=== PATIENT | female | born 1940 | race Caucasian/White ===

== ENCOUNTER 2017-07-23 19:37 | Emergency (ER) | payer MEDICARE, OTHER ==
[~2017-07-23] VITALS: Ht 167.6 cm; Wt 65.8 kg
[~2017-07-23 19:37] MED LIST: ALIGN; AZIT500T47 PO; CYCL1DRO6 OP; DILT-102 PO; HYDR473S4 PO; LEVO300T5 PO; PRE20 PO; RIV10 PO; TOLT2TAB5 PO; URSO250T11 PO
--- NOTE | 2017-07-23 19:45 | ER Report ---
History and Physical Time Seen By MD: 19:45 Hx. of Stated Complaint: RAPID HEART RATE, SOB, DIZZINESS. HPI/ROS CHIEF COMPLAINT: Rapid heart rate HISTORY OF PRESENT ILLNESS: This is a 76-year-old female who presents to the emergency department for a rapid heart rate. Patient states that about 3 hours ago she developed a rapid heart rate which she states is A. fib. Also states that about 4 years ago she had a complete heart block had a pacemaker placed has had intermittent episodes of A. fib then in March she had an ablation. Following the ablation she was instructed to stop her metoprolol and her Cardizem for breakthrough episodes of A. fib, as she is on Multaq. This episode of A. Fib began 3 hours prior to arrival, she has also had some mild confusion and feels like her chest is pounding however she denies chest pain, is having some mild shortness of breath. Patient denies diaphoresis, aches, chills, nausea , vomiting, diarrhea. REVIEW OF SYSTEMS: Constitutional: No fever, no chills. Eyes: No discharge. ENT: No sore throat. Cardiovascular: As above. Respiratory: As above. Gastrointestinal: No abdominal pain, no vomiting. Genitourinary: No hematuria. Musculoskeletal: No back pain. Skin: No rashes. Neurological: As above. Allergies: Coded Allergies: Penicillins (Verified Allergy, Mild, SYNCOPE, 07/23/17) iodine (Verified Allergy, Mild, INTERNAL IODINE, CHANGE IN VS, 07/23/17) Uncoded Allergies: ORANGE JUICE (Allergy, Severe, THROAT CLOSES, 12/21/11) SOME DIARY PRODUCTS (Allergy, Severe, THROAT CLOSES, 05/22/07) MOLD (Allergy, Unknown, 11/19/14) Home Meds Active Scripts Metoprolol Tartrate (METOPROLOL TARTRATE) 25 Mg Tablet, 1 TAB PO BID, #12 TAB Prov:PAUL GARCIA INDUSTRIAL GAS FITTER-BC 07/23/17 Reported Medications Vitamin B Complex (VITAMIN B COMPLEX) 1 Each Capsule, 1 EACH PO, CAPSULE 07/23/17 Cholecalciferol (Vitamin D3) (Vitamin D-3) 2,000 Unit Tablet 07/23/17 Multivit,Calc,Mins/Iron/Folic (Therapeutic-M Tablet) 9 Mg Iron-400 Mcg Tablet 07/23/17 Dronedarone Hcl (MULTAQ) 400 Mg Tablet, 400 MG PO 07/23/17 Rivaroxaban (XARELTO 10 MG TAB (OR EQUIV)) 10 Mg Tablet, 10 MG PO QDAY 03/08/15 Ursodiol (Jordy) 250 Mg Tablet, 250 MG PO BID, #1 12/15/09 Levothyroxine Sodium (Levothryoxine Sodium) 300 Mcg Tablet, 300 MCG PO QDAY, #1 12/15/09 Discontinued Reported Medications Diltiazem Hcl (CARTIA XT) 120 Mg Cap.er.24h, PO DAILY 03/08/15 Cyclosporine (Restasis) 32 Ea Drope[place], 1 EA OP BID 12/15/09 Past Medical/Surgical History Patient has a past medical and surgical history of A. fib, pacemaker, third- degree AV block. His right is, primary biliary cirrhosis, Sjogren's, hysterectomy, 2 knee scopes. Reviewed Nurses Notes: Yes Hx Smoking: No Smoking Status: Never Smoker Constitutional Vital Sign - Last 24 Hours 07/23/17 07/23/17 07/23/17 07/23/17 19:43 19:45 19:52 20:00 Pulse 144 Resp 10 B/P (MAP) 111/87 (95) 108/81 (90) Pulse Ox 92 O2 Delivery Room Air 07/23/17 07/23/17 07/23/17 07/23/17 20:07 20:15 20:22 20:30 Pulse 124 100 Resp 13 10 B/P (MAP) 109/81 (90) 115/70 (85) Pulse Ox 93 89 07/23/17 07/23/17 07/23/17 07/23/17 20:37 20:52 21:00 21:07 Pulse 92 98 96 Resp 13 14 15 B/P (MAP) 114/72 (86) Pulse Ox 94 96 96 07/23/17 07/23/17 07/23/17 07/23/17 21:15 21:22 21:30 21:35 Pulse 84 89 Resp 14 B/P (MAP) 108/64 (79) 103/67 (79) Pulse Ox 92 07/23/17 07/23/17 07/23/17 07/23/17 21:40 21:45 21:55 22:00 Pulse 74 77 Resp 15 24 B/P (MAP) 117/68 (84) 119/70 (86) Pulse Ox 92 93 Intake and Output 07/23/17 07/23/17 07/24/17 15:00 23:00 07:00 Intake Total 500 ml Balance 500 ml Physical Exam General Appearance: The patient is alert, has no immediate need for airway protection and no signs of toxicity. Eyes: Pupils equal and round no pallor or injection. ENT, Mouth: Mucous membranes are moist. Respiratory: There are no retractions, lungs are clear to auscultation. Cardiovascular: Irregular rate and rhythm, no murmurs, clicks or rubs. Gastrointestinal: Abdomen is soft and non tender, no masses, bowel sounds normal. Neurological: Alert and oriented 4. Moving all Achilles. Following all commands. No focal neuro deficits. Skin: Warm and dry, no rashes. Musculoskeletal: Neck is supple non tender. Extremities are nontender, nonswollen and have full range of motion. DIFFERENTIAL DIAGNOSIS: After history and physical exam differential diagnosis was considered for chest pain including but not limited to myocardial ischemia, pericarditis pulmonary embolus, chest wall pain, pleural inflammation and pulmonary infectious causes, A. Fib. Medical Decision Making Data Points Result Diagram: 07/23/17 1950 07/23/17 1950 Laboratory Hematology Test 07/23/17 19:50 Red Blood Count 4.90 M/uL (4.17-5.56) Mean Corpuscular Volume 92.4 fL (80.0-96.0) Mean Corpuscular Hemoglobin 31.1 pg (26.0-33.0) Mean Corpuscular Hemoglobin Concent 33.7 g/dL (32.0-36.0) Red Cell Distribution Width 13.2 % (11.5-14.5) Mean Platelet Volume 8.1 fL (7.2-11.1) Neutrophils (%) (Auto) 61.2 % (39.4-72.5) Lymphocytes (%) (Auto) 29.1 % (17.6-49.6) Monocytes (%) (Auto) 7.2 % (4.1-12.4) Eosinophils (%) (Auto) 1.7 % (0.4-6.7) Basophils (%) (Auto) 0.8 % (0.3-1.4) Nucleated RBC Relative Count (auto) 0.1 /100WBC Neutrophils # (Auto) 3.1 K/uL (2.0-7.4) Lymphocytes # (Auto) 1.5 K/uL (1.3-3.6) Monocytes # (Auto) 0.4 K/uL (0.3-1.0) Eosinophils # (Auto) 0.1 K/uL (0.0-0.5) Basophils # (Auto) 0.0 K/uL (0.0-0.1) Nucleated RBC Absolute Count (auto) 0.00 K/uL D-Dimer Quantitative (PE/DVT) < 0.27 ug/ml (0-0.50) Sodium Level 137 mmol/L (137-145) Potassium Level 3.6 mmol/L (3.5-5.0) Chloride Level 104 mmol/L (98-107) Carbon Dioxide Level 26 mmol/L (22-31) Blood Urea Nitrogen 13 mg/dl (7-18) Creatinine 1.10 mg/dl (0.52-1.04) Glomerular Filtration Rate Calc 48.0 Random Glucose 71 mg/dl (75-110) Calcium Level 9.2 mg/dl (8.4-10.2) Total Bilirubin 0.3 mg/dl (0.2-1.3) Aspartate Amino Transf (AST/SGOT) 59 U/L (0-35) Alanine Aminotransferase (ALT/SGPT) 33 U/L (0-56) Alkaline Phosphatase 86 U/L (0-126) Troponin I < 0.012 ng/ml Total Protein 7.4 gm/dl (6.3-8.2) Albumin 4.0 g/dl (3.5-5.0) Chemistry Test 07/23/17 19:50 White Blood Count 5.0 k/uL (4.5-11.0) Red Blood Count 4.90 M/uL (4.17-5.56) Hemoglobin 15.2 g/dL (12.0-16.0) Hematocrit 45.3 % (34.0-47.0) Mean Corpuscular Volume 92.4 fL (80.0-96.0) Mean Corpuscular Hemoglobin 31.1 pg (26.0-33.0) Mean Corpuscular Hemoglobin Concent 33.7 g/dL (32.0-36.0) Red Cell Distribution Width 13.2 % (11.5-14.5) Platelet Count 254 K/uL (150-450) Mean Platelet Volume 8.1 fL (7.2-11.1) Neutrophils (%) (Auto) 61.2 % (39.4-72.5) Lymphocytes (%) (Auto) 29.1 % (17.6-49.6) Monocytes (%) (Auto) 7.2 % (4.1-12.4) Eosinophils (%) (Auto) 1.7 % (0.4-6.7) Basophils (%) (Auto) 0.8 % (0.3-1.4) Nucleated RBC Relative Count (auto) 0.1 /100WBC Neutrophils # (Auto) 3.1 K/uL (2.0-7.4) Lymphocytes # (Auto) 1.5 K/uL (1.3-3.6) Monocytes # (Auto) 0.4 K/uL (0.3-1.0) Eosinophils # (Auto) 0.1 K/uL (0.0-0.5) Basophils # (Auto) 0.0 K/uL (0.0-0.1) Nucleated RBC Absolute Count (auto) 0.00 K/uL D-Dimer Quantitative (PE/DVT) < 0.27 ug/ml (0-0.50) Glomerular Filtration Rate Calc 48.0 Calcium Level 9.2 mg/dl (8.4-10.2) Total Bilirubin 0.3 mg/dl (0.2-1.3) Aspartate Amino Transf (AST/SGOT) 59 U/L (0-35) Alanine Aminotransferase (ALT/SGPT) 33 U/L (0-56) Alkaline Phosphatase 86 U/L (0-126) Troponin I < 0.012 ng/ml Total Protein 7.4 gm/dl (6.3-8.2) Albumin 4.0 g/dl (3.5-5.0) Coagulation Test 07/23/17 19:50 D-Dimer Quantitative (PE/DVT) < 0.27 ug/ml EKG/Imaging EKG Interpretation 12 lead EKG: Rhythm: A. fib with RVR, 145 bpm. Talmage: normal QRS: normal ST segments: normal 10/02/2015 EKG showing normal sinus rhythm with first-degree AV block and occasional PVC. 03/08/2015 EKG showing A. fib at a rate of 125. 12 lead EKG: Repeat EKG following a total of 20 mg IV diltiazem. Rhythm: Sinus rhythm with a 1st degree AV block. 74 bpm. Talmage: normal QRS: normal ST segments: normal Imaging Location: [facility] Patient: Maria M Katz : 1940 Visit/Account:[id number] Date of Sevice: 07/23/2017 CHEST PA AND LAT HISTORY: Chest pain. COMPARISON: 03/08/2015 and 12/23/2008. TECHNIQUE: PA and lateral views of the chest. FINDINGS: Tubes/lines/hardware: Pacemaker generator overlies the left upper lateral chest and leads terminate at the right atrium and right ventricle. Pulmonary: There is mild left basilar scar or atelectasis, new. There are small calcified granulomas versus vessels on end at the right lung base. There is stable blunting of the posterior costophrenic angles. No pneumothorax. Cardiomediastinal: Cardiac and mediastinal silhouettes are within normal limits. Bones/soft tissues: There is mild degenerative change of the spine. The visible abdomen is normal. IMPRESSION: 1. Mild left basilar atelectasis or scarring, new from prior study. 2. Chronic blunting of the posterior costophrenic angles may be due to pleural thickening or chronic pleural effusions. Report Dictated By: Samanta Neumann at 07/23/2017 9:19 PM Report E-Signed By: Samanta Neumann at 07/23/2017 9:22 PM WSN:[id number] ED Course/Re-evaluation Clinical Indication for ER IV: Hydration, IV Access ED Course The patient was admitted to him. History and physical were obtained. Differential diagnoses were considered. An IV was started. 500 mL bolus of normal saline was given. A CBC, CMP were obtained which were unremarkable. A 2 view chest x-ray was obtained showing mild left basilar atelectasis or scarring , also showing pleural thickening or chronic pleural effusions. No acute findings. The results were reviewed with the patient and her . Patient was given a total of 20 mg IV diltiazem. I did speak with Dr. Mccord as noted below. Patient did convert from A. fib to sinus rhythm. She states she is feeling much better at this time and feels as if she can go home. I did tell patient that she must follow-up with [facility] on Tuesday or Tuesday and go ahead and take the metoprolol twice a day until she follows up with the director compliance, starting tomorrow morning. Patient was also encouraged to return to the emergency department for any other concerns or worsening symptoms. The patient and her had no other questions or concerns end was discharged home. She is also sent home with 2 metoprolol for breakthrough. 07/23/2017 19:55:14 pm [address] speak with Dr[address] Mccord the on-call director compliance [facility] since the patient said that she was not supposed to take diltiazem and was taken off of metoprolol since she had her ablation and was on multaq, he said we can go ahead and give diltiazem, metoprolol or we could cardiovert her. Elected to give diltiazem and send her home with metoprolol and have her follow up Tuesday with [facility]. Decision to Disposition Date: Jul 23, 2017 Decision to Disposition Time: 22:05 Depart Departure Latest Vital Signs Vital Signs Date Time Temp Pulse Resp B/P (MAP) Pulse Ox O2 Delivery O2 Flow Rate FiO2 07/23/17 22:00 119/70 (86) 07/23/17 21:55 77 24 93 07/23/17 19:43 Room Air Impression: Primary Impression: Atrial fibrillation with rapid ventricular response Condition: Improved Disposition: HOME OR SELF-CARE Referrals: HERNESTO LIVINGSTON DO (PCP) ADONIS MORILLO MD CARDIOLOGY New Scripts Metoprolol Tartrate (METOPROLOL TARTRATE) 25 Mg Tablet 1 TAB PO BID, #12 TAB Prov: PAUL GARCIA INDUSTRIAL GAS FITTER-BC 07/23/17 Patient Instructions: A-fib (Atrial Fibrillation) (ED) Additional Instructions: Drink plenty of water. Plenty of rest. Take the metoprolol as directed, one tablet in the morning and one tablet in the evening. You must follow-up with [facility] Tuesday or Tuesday, call 1st thing Tuesday morning to schedule the appointment. If you've failure heart rate racing again and heart pounding go ahead and try one metoprolol. If you have any other concerns or worsening symptoms please follow-up in the emergency department. MD Consult Note: PAUL Bhatti INDUSTRIAL GAS FITTER- Jul 23, 2017 19:45
[2017-07-23] MEDS ORDERED: NS(*) 0.9% 500 ML BAG 500 ML IV ONE (20:04)
[2017-07-23] MEDS ORDERED: ONDANSETRON 4 MG/2 ML VIAL IVP ONE (20:05)
[2017-07-23] MEDS ORDERED: ASPIRIN 81 MG CHEW PO ONE (20:05)
[2017-07-23] MEDS ORDERED: DRON400T4 PO (20:09)
[2017-07-23] MEDS ORDERED: MULT-73 (20:09)
[2017-07-23] MEDS ORDERED: CHOL200022 (20:09)
[2017-07-23] MEDS ORDERED: VITA1CAP46 PO (20:09)
[2017-07-23] MEDS ORDERED: DILTIAZEM 5 MG/ML 5ML IVPUSH IVP ONE (20:15)
[2017-07-23 20:21] LABS: PLATELET COUNT, AUTOMATED 254 K/uL (150-450)
--- NOTE | 2017-07-23 21:26 | RADIOLOGY IMAGING REPORT ---
FACILITY: PATIENT NAME: Maria M Katz : 1940 MR: [id number] V: [id number] EXAM DATE: ORDERING PHYSICIAN: PAUL GARCIA TECHNOLOGIST: Location: [facility] [place] Patient: Maria M Katz : 1940 Visit/Account:[id number] Date of Sevice: 07/23/2017 CHEST PA AND LAT HISTORY: Chest pain. COMPARISON: 03/08/2015 and 12/23/2008. TECHNIQUE: PA and lateral views of the chest. FINDINGS: Tubes/lines/hardware: Pacemaker generator overlies the left upper lateral chest and leads terminate a t the right atrium and right ventricle. Pulmonary: There is mild left basilar scar or atelectasis, new. There are small calcified granulomas versus vessels on end at the right lung base. There is stable blunting of the posterior costophrenic angles. No pneumothorax. Cardiomediastinal: Cardiac and mediastinal silhouettes are within normal limits. Bones/soft tissues: There is mild degenerative change of the spine. The visible abdomen is normal. IMPRESSION: 1. Mild left basilar atelectasis or scarring, new from prior study. 2. Chronic blunting of the posterior costophrenic angles may be due to pleural thickening or chronic pleural effusions. Report Dictated By: Samanta Neumann at 07/23/2017 9:19 PM Report E-Signed By: Samanta Neumann at 07/23/2017 9:22 PM WSN:[id number]
[2017-07-23] MEDS ORDERED: METO25TA93 PO (21:55)
[2017-07-23 22:00] VITALS: BP 119/70
[2017-07-23] MEDS ORDERED: METOPROLOL TART 50 MG TAB PO ONE (22:00)
--- NOTE | 2017-07-23 22:14 | EKG ---
FACILITY[place] [facility] [place]IENT NAME: HOLLIS COLLINS : [id number] MR: [id number] V: [id number] EXAM DATE: ORDERING PHYSICIAN: PAUL GARCIA TECHNOLOGIST: HECTOR Test Reason : A FIB Blood Pressure : / mmHG Vent. Rate : 145 BPM Atrial Rate : 153 BPM P-R Int : 000 ms QRS Dur : 076 ms QT Int : 316 ms P-R-T Axes : 000 080 074 degrees QTc Int : 490 ms Atrial fibrillation with rapid ventricular response Nonspecific ST abnormality , probably digitalis effect Abnormal ECG When compared with ECG of 02-OCT-2015 17:41, Atrial fibrillation has replaced Sinus rhythm Vent. rate has increased BY 75 BPM Confirmed by ROBYN BHATT ([id number]) on 07/24/2017 1:42:00 AM Referred By: Confirmed By:ROBYN BHATT
--- NOTE | 2017-07-23 22:14 | EKG ---
FACILITY: [facility] PATIENT NAME: HOLLIS COLLINS : [id number] MR: [id number] V: [id number] EXAM DATE: ORDERING PHYSICIAN: PAUL GARCIA TECHNOLOGIST: HECTOR Test Reason : S,P A FIB Blood Pressure : / mmHG Vent. Rate : 081 BPM Atrial Rate : 267 BPM P-R Int : 000 ms QRS Dur : 084 ms QT Int : 402 ms P-R-T Axes : 000 056 066 degrees QTc Int : [address]-T abnormalities When compared with ECG of 23-JUL-2017 19:46, Now rate controlled Confirmed by ROBYN BHATT ([id number]) on 07/24/2017 1:42:59 AM Referred By: Confirmed By:ROBYN BHATT
--- NOTE | 2017-07-23 22:14 | EKG ---
FACILITY: [facility] - [place] PATIENT NAME: HOLLIS COLLINS : [id number] MR: [id number] V: [id number] EXAM DATE: ORDERING PHYSICIAN: PAUL GARCIA TECHNOLOGIST: HECTOR Test Reason : S,P A FIB Blood Pressure : / mmHG Vent. Rate : 074 BPM Atrial Rate : 074 BPM P-R Int : 222 ms QRS Dur : 086 ms QT Int : 410 ms P-R-T Axes : 074 065 066 degrees QTc Int : 455 ms Sinus rhythm with 1st degree AV block Otherwise normal ECG When compared with ECG of 23-JUL-2017 21:33, Now in sinus rhythm Confirmed by ROBYN BHATT ([id number]) on 07/24/2017 1:43:42 AM Referred By: Confirmed By:ROBYN BHATT
== END 2017-07-23 22:15 | disposition home or self-care (01) ==
LOC: ER 19:48
DX: I48.0 Paroxysmal atrial fibrillation (principal); J98.11 Atelectasis
CPT/HCPCS: 71046; 84484; 85025; 85379; 93005; 96361; 96374; 99284; A9270; J3490; J7040; 82040; 82247; 82310; 82374; 82435; 82565; 82947; 84075; 84132; 84155; 84295; 84450; 84460; 84520

== ENCOUNTER → 2017-07-27 | Outpatient (CLI) | payer MEDICARE, OTHER ==
[~2017-07-27] MED LIST changes: +CHOL200022; +DRON400T4 PO; +METO25TA93 PO; +MULT-73; +VITA1CAP46 PO
== END ==
LOC: LAB 15:27
PROVIDERS: ATTEND Internal Medicine Cardiovascular Disease
DX: G45.9 Transient cerebral ischemic attack, unspecified (principal); I48.0 Paroxysmal atrial fibrillation
CPT/HCPCS: 36415; 84443

== ENCOUNTER → 2017-09-29 | Outpatient (CLI) | payer MEDICARE, OTHER ==
--- NOTE | 2017-09-30 15:41 | RADIOLOGY IMAGING REPORT ---
FACILITY: [facility] - [place] PATIENT NAME: HOLLIS COLLINS : [id number] MR: [id number] V: [id number] EXAM DATE: [id number] ORDERING PHYSICIAN: HERNESTO LIVINGSTON TECHNOLOGIST: Eusebia Prieto PROCEDURE:BILATERAL DIGITAL SCREENING MAMMOGRAM WITH CAD ASSISTED INTERPRETATION & 3D TOMOSYNTHESIS COMPARISON:Prior mammograms 09/09/16, 09/08/15 INDICATIONS:SCREENING/PERSONAL HISTORY OF BILATERAL BENIGN SURGICAL EXCISIONAL BIOPSIES. VIEWS OBTAINED:Bilateral 2D CC & MLO & corresponding 3D tomography TISSUE DENSITY: Scattered fibroglandular densities. FINDINGS: There is no mammographic finding suspicious for malignancy and no significant change compared to prior mammograms. The Left axilla is partially obscured by a pace maker control unit. DIAGNOSTIC CATEGORY 1--NEGATIVE. RECOMMENDATIONS: ROUTINE MAMMOGRAM AND CLINICAL EVALUATION. IMPRESSION: BIRADS 1: Negative RECOMMENDATION: Annual screening mammogram. Dictated by: Danielle Lambert M.D. on 09/30/2017 at 8:30 Transcribed by: NATHALY on 09/30/2017 at 14:57 Approved by: Danielle Lambert M.D. on 09/30/2017 at 15:40 [facility]
== END ==
LOC: MAMO 02:47
PROVIDERS: ATTEND Family Medicine
DX: Z12.31 Encounter for screening mammogram for malignant neoplasm of breast (principal); Z95.0 Presence of cardiac pacemaker
CPT/HCPCS: 77063; 77067

== ENCOUNTER → 2018-07-12 | Outpatient (CLI) | payer MEDICARE, OTHER | LOC: LAB 12:17 | PROVIDERS: ATTEND Internal Medicine Cardiovascular Disease | DX: I48.91 Unspecified atrial fibrillation (principal) | CPT/HCPCS: 36415; 82310; 82374; 82435; 82565; 82947; 83735; 84132; 84295; 84520 ==

== ENCOUNTER 2018-09-25 11:30 | Observation (INO) | payer MEDICARE, OTHER ==
[~2018-09-25] VITALS: Ht 167.6 cm; Wt 63.5 kg
[~2018-09-25 11:30] MED LIST changes: -DIA5 PO; -DOCU-202 PO; -GARL1TAB9 PO; -LEVO50TA86 PO; -METO-253 PO; -OLOP2.5D4 OP; -OMEG-11 PO; -OXYB10TA21 PO; -OXYC5TAB38 PO; -RIVA20TA PO; -TAMS0.4C25 PO; -THIA100T6 PO; -[UNRECOGNIZED DRUG - OTHER] PO
[2018-09-25] MEDS ORDERED: NS(*) 0.9% 1000 ML BAG 1,000 ML IV ONE (11:40)
[2018-09-25] MEDS ORDERED: OXYB10TA21 PO (11:47)
[2018-09-25] MEDS ORDERED: OLOP2.5D4 OP (11:47)
--- NOTE | 2018-09-25 11:47 | ER Report ---
History and Physical Time Seen By MD: 11:42 Hx. of Stated Complaint: pt presents with recent hx of travelling by car from [place] on Sat night.Pain started shortly after arrival home. Denies trauma /strain HPI/ROS 78 year old female with sudden onset low back pain. has not had the issue before. recently traveled from [place] by car. no trauma . received 2 mg ativan per ens very somnomulent on exam . oxygen to keep sats above 92% Allergies: Coded Allergies: Penicillins (Verified Allergy, Mild, SYNCOPE, 09/25/18) iodine (Verified Allergy, Mild, INTERNAL IODINE, CHANGE IN VS, 09/25/18) Uncoded Allergies: ORANGE JUICE (Allergy, Severe, THROAT CLOSES, 12/21/11) SOME DIARY PRODUCTS (Allergy, Severe, THROAT CLOSES, 05/22/07) MOLD (Allergy, Unknown, 11/19/14) Home Meds Reported Medications [Benfotiamin ] No Conflict Check, 1 TAB PO DAILY 09/25/18 [place]-3 Fatty Acids/Fish Oil (FISH OIL 1,000 MG CAPSULE) 1 Each Capsule, 1 EACH PO DAILY, CAPSULE 09/25/18 Garlic (GARLIC) 1 Each Tablet, 1 EACH PO DAILY 09/25/18 Metoprolol Tartrate (METOPROLOL TARTRATE) 50 Mg Tab, 1 TAB PO QDAY, TAB 09/25/18 Rivaroxaban 20 Mg (XARELTO 20 MG) 20 Mg Tablet, 20 MG PO DAILY, TAB 09/25/18 Levothyroxine Sodium (LEVOTHYROXINE SODIUM) 50 Mcg Tablet, 50 MCG PO QDAY, TAB 09/25/18 Olopatadine HCl (Pazeo) 2.5 Ml Drops, 1 DROP OP DAILY 09/25/18 Oxybutynin Chloride (DITROPAN XL) 10 Mg Tab.er.24, 10 MG PO QDAY, TAB 09/25/18 Vitamin B Complex (VITAMIN B COMPLEX) 1 Each Capsule, 1 EACH PO, CAPSULE 07/23/17 Cholecalciferol (Vitamin D3) (Vitamin D-3) 2,000 Unit Tablet 07/23/17 Multivit,Calc,Mins/Iron/Folic (Therapeutic-M Tablet) 9 Mg Iron-400 Mcg Tablet 07/23/17 Dronedarone Hcl (MULTAQ) 400 Mg Tablet, 400 MG PO 07/23/17 Ursodiol (Jordy) 250 Mg Tablet, 250 MG PO BID, #1 12/15/09 Discontinued Reported Medications Rivaroxaban (XARELTO 10 MG TAB (OR EQUIV)) 10 Mg Tablet, 10 MG PO QDAY 03/08/15 Levothyroxine Sodium (Levothryoxine Sodium) 300 Mcg Tablet, 300 MCG PO QDAY, #1 12/15/09 Discontinued Scripts Metoprolol Tartrate (METOPROLOL TARTRATE) 25 Mg Tablet, 1 TAB PO BID, #12 TAB Prov:PAUL GARCIA [place] CUSTOMER SERVICE SUPERVISOR-BC 07/23/17 Past Medical/Surgical History PACER, AFIB, BILIARY CIRRHOSIS. SJOGRENS , HIP REPLACEMENT Reviewed Nurses Notes: Yes Old Medical Records Reviewed: Yes Hx Smoking: No Smoking Status: Never Smoker Constitutional Vital Sign - Last 24 Hours 09/25/18 09/25/18 09/25/18 09/25/18 11:34 11:34 11:35 12:00 Temp 97.8 Pulse 62 63 Resp 20 B/P (MAP) 128/67 128/67 (87) Pulse Ox 87 95 O2 Flow Rate 2.0 09/25/18 09/25/18 09/25/18 09/25/18 12:05 12:35 12:53 13:00 Pulse 61 ??? B/P (MAP) 136/67 (90) 135/64 (87) Pulse Ox 93 09/25/18 09/25/18 09/25/18 09/25/18 13:05 13:30 13:35 14:00 Pulse 61 61 B/P (MAP) 124/62 (82) 114/61 (78) Pulse Ox 94 98 09/25/18 09/25/18 09/25/18 09/25/18 14:05 14:10 14:30 14:40 Pulse 63 61 63 B/P (MAP) 124/63 (83) Pulse Ox 93 100 09/25/18 15:00 B/P (MAP) 126/57 (80) Physical Exam 78 YEAR OLD FEMALE ALERT AND ORIENTED SOMNOMULENT FROM MEDS, PUPILS PINPOINT , HRR, LUNGS CTA, ABDOMEN SOFT, LSPINE PAIN TO PALPATION , GONZALEZ, NO NUMBNESS LEGS Medical Decision Making Data Points Result Diagram: 09/25/18 1158 09/25/18 1158 Laboratory Hematology Test 09/25/18 11:58 Red Blood Count 4.86 M/uL (4.17-5.56) Mean Corpuscular Volume 93.4 fL (80.0-96.0) Mean Corpuscular Hemoglobin 30.9 pg (26.0-33.0) Mean Corpuscular Hemoglobin Concent 33.0 g/dL (32.0-36.0) Red Cell Distribution Width 13.5 % (11.5-14.5) Mean Platelet Volume 8.2 fL (7.2-11.1) Neutrophils (%) (Auto) 82.0 % (39.4-72.5) Lymphocytes (%) (Auto) 10.2 % (17.6-49.6) Monocytes (%) (Auto) 7.1 % (4.1-12.4) Eosinophils (%) (Auto) 0.2 % (0.4-6.7) Basophils (%) (Auto) 0.5 % (0.3-1.4) Nucleated RBC Relative Count (auto) 0.1 /100WBC Neutrophils # (Auto) 6.1 K/uL (2.0-7.4) Lymphocytes # (Auto) 0.8 K/uL (1.3-3.6) Monocytes # (Auto) 0.5 K/uL (0.3-1.0) Eosinophils # (Auto) 0.0 K/uL (0.0-0.5) Basophils # (Auto) 0.0 K/uL (0.0-0.1) Nucleated RBC Absolute Count (auto) 0.00 K/uL Erythrocyte Sedimentation Rate 7 mm/HOUR (0-30) Sodium Level 141 mmol/L (137-145) Potassium Level 3.6 mmol/L (3.5-5.0) Chloride Level 105 mmol/L (98-107) Carbon Dioxide Level 28 mmol/L (22-31) Blood Urea Nitrogen 18 mg/dl (7-18) Creatinine 1.10 mg/dl (0.52-1.04) Glomerular Filtration Rate Calc 47.8 Random Glucose 107 mg/dl (75-110) Calcium Level 9.6 mg/dl (8.4-10.2) Total Bilirubin 0.5 mg/dl (0.2-1.3) Aspartate Amino Transf (AST/SGOT) 45 U/L (0-35) Alanine Aminotransferase (ALT/SGPT) 19 U/L (0-56) Alkaline Phosphatase 80 U/L (0-126) C-Reactive Protein 3.1 mg/dl (<1.0) Total Protein 7.2 g/dl (6.3-8.2) Albumin 4.2 g/dl (3.5-5.0) Lipase 75 U/L (23-300) Chemistry Test 09/25/18 11:58 White Blood Count 7.4 k/uL (4.5-11.0) Red Blood Count 4.86 M/uL (4.17-5.56) Hemoglobin 15.0 g/dL (12.0-16.0) Hematocrit 45.4 % (34.0-47.0) Mean Corpuscular Volume 93.4 fL (80.0-96.0) Mean Corpuscular Hemoglobin 30.9 pg (26.0-33.0) Mean Corpuscular Hemoglobin Concent 33.0 g/dL (32.0-36.0) Red Cell Distribution Width 13.5 % (11.5-14.5) Platelet Count 230 K/uL (150-450) Mean Platelet Volume 8.2 fL (7.2-11.1) Neutrophils (%) (Auto) 82.0 % (39.4-72.5) Lymphocytes (%) (Auto) 10.2 % (17.6-49.6) Monocytes (%) (Auto) 7.1 % (4.1-12.4) Eosinophils (%) (Auto) 0.2 % (0.4-6.7) Basophils (%) (Auto) 0.5 % (0.3-1.4) Nucleated RBC Relative Count (auto) 0.1 /100WBC Neutrophils # (Auto) 6.1 K/uL (2.0-7.4) Lymphocytes # (Auto) 0.8 K/uL (1.3-3.6) Monocytes # (Auto) 0.5 K/uL (0.3-1.0) Eosinophils # (Auto) 0.0 K/uL (0.0-0.5) Basophils # (Auto) 0.0 K/uL (0.0-0.1) Nucleated RBC Absolute Count (auto) 0.00 K/uL Erythrocyte Sedimentation Rate 7 mm/HOUR (0-30) Glomerular Filtration Rate Calc 47.8 Calcium Level 9.6 mg/dl (8.4-10.2) Total Bilirubin 0.5 mg/dl (0.2-1.3) Aspartate Amino Transf (AST/SGOT) 45 U/L (0-35) Alanine Aminotransferase (ALT/SGPT) 19 U/L (0-56) Alkaline Phosphatase 80 U/L (0-126) C-Reactive Protein 3.1 mg/dl (<1.0) Total Protein 7.2 g/dl (6.3-8.2) Albumin 4.2 g/dl (3.5-5.0) Lipase 75 U/L (23-300) ED Course/Re-evaluation ED Course Patient with severe low back pain CT is showing moderate stenosis lab work is within normal limits she was cathetered for urine this was normal as well and I did talk to Dr. Laith Perez to admit her for pain control and we'll do a CT abdomen pelvis on the way upstairs Decision to Disposition Date: Sep 25, 2018 Decision to Disposition Time: 18:49 Depart Departure Latest Vital Signs Vital Signs Date Time Temp Pulse Resp B/P (MAP) Pulse Ox O2 Delivery O2 Flow Rate FiO2 09/25/18 15:00 126/57 (80) 09/25/18 14:40 63 100 09/25/18 11:35 2.0 09/25/18 11:34 97.8 20 Impression: Primary Impression: Back pain Condition: Improved Disposition: Admitted from ER Referrals: HERNESTO LIVINGSTON DO (PCP) DILMA LYNCH Sep 25, 2018 11:46
--- NOTE | 2018-09-25 12:14 | EKG ---
FACILITY: [facility] - [place] PATIENT NAME: HOLLIS COLLINS : [id number] MR: [id number]: [id number] EXAM DATE: ORDERING PHYSICIAN: DILMA LYNCH TECHNOLOGIST: DIAMOND Test Reason : BACK PAIN Blood Pressure : / mmHG Vent. Rate : 060 BPM Atrial Rate : 060 BPM P-R Int : 202 ms QRS Dur : 086 ms QT Int : 444 ms P-R-T Axes : 000 -24 -10 degrees QTc Int : 444 ms Electronic atrial pacemaker Confirmed by MARTHA GREY ([id number] on 09/25/2018 8:39:31 PM Referred By: YUNIEL Confirmed By:MARTHA GREY
[2018-09-25 12:15] LABS: PLATELET COUNT, AUTOMATED 230 K/uL (150-450)
[2018-09-25] MEDS ORDERED: fentaNYL CITR 100 MCG/2 ML AMP IVP ONE (13:20)
--- NOTE | 2018-09-25 14:03 | RADIOLOGY IMAGING REPORT ---
FACILITY: [facility] PATIENT NAME: Maria M Katz : 1940 MR: [id number] V: [id number] EXAM DATE: ORDERING PHYSICIAN: DILMA LYNCH TECHNOLOGIST: Location: [facility] [place] Patient: Maria M Katz : 1940 Visit/Account:[id number] Date of Sevice: 09/25/2018 Study: CT scan of the lumbar spine without contrast. Indication:Low back pain Comparison study:None Technique: Multiple axial images are obtained through the lumbar spine without the use of intravenous contrast. Coronal and sagittal two-dimensional reconstructions were made from the original data set. One of the following dose optimization techniques was utilized in the performance of this exam: Autom ated exposure control; adjustment of the mA and/or kV according to the patient's size; or use of an i terative reconstruction technique. Specific details can be referenced in the facility's radiology C T exam operational policy. Alignment:There is normal alignment of the lumbar vertebrae. Paraspinal soft tissues: Unremarkable There is no evidence of active compression fracture. Disc spaces: L1/2: At this level, there is a posterior spondylotic ridge. There is vacuum disc degeneration presen t. There is a minimal diffuse disc bulge. There is no significant neural foraminal stenosis or spinal stenosis identified. L2/3: At this level, there is vacuum disc degeneration. There is mild diffuse disc bulge. There is mi ld spinal stenosis. There is mild bilateral neural foraminal stenosis. There is facet hypertrophy pre sent. L3/4: At this level, there is vacuum disc degeneration. There is a diffuse disc bulge. There is bilat eral facet hypertrophy. There is mild spinal stenosis present. There is moderate right and mild left neural foraminal stenosis. L4/5: At this level, there is marked disc space narrowing. There is vacuum disc degeneration. There i s a central disc extrusion. There is at least moderate spinal stenosis present at this level. There i s moderate bilateral neural foraminal stenosis. L5/S1: At this level, there is no evidence of significant disc pathology. There is bilateral facet hy pertrophy. There is no significant spinal stenosis identified. There is no significant neural foramin al stenosis. IMPRESSION: Multilevel lumbar disc pathology and spondylopathy present as described. At the level of L4-5, there is at least moderate spinal stenosis present. Report Dictated By: Ozzie Bell at 09/25/2018 1:54 PM Report E-Signed By: Ozzie Bell at 09/25/2018 1:57 PM WSN:[email or web address]
--- NOTE | 2018-09-25 16:02 | RADIOLOGY IMAGING REPORT ---
FACILITY: PATIENT NAME: Maria M Katz : 1940 MR: [id number] V: [id number] EXAM DATE: ORDERING PHYSICIAN: DILMA LYNCH TECHNOLOGIST: Location: [facility] Patient: Maria M Katz : 1940 Visit/Account:[id number] Date of Sevice: 09/25/2018 CT ABDOMEN PELVIS W/O CON HISTORY: ABD PAIN IODINE ALLERGY TECHNIQUE: Axial images acquired through the abdomen/pelvis. Coronal and sagittal reformatting also performed. No IV contrast administered.Dose Lowering Technique One of the following dose optimization techniques was utilized in the performance of this exam: Autom ated exposure control; adjustment of the mA and/or kV according to the patient's size; or use of an i terative reconstruction technique. Specific details can be referenced in the facility's radiology C T exam operational policy. COMPARISON: July 29, 2009 FINDINGS: Visualized lung bases: Incompletely imaged are cardiac leads. Coarse linear stranding in the lung b ases is consistent with scarring versus atelectasis . This appears more prominent when compared to the prior study Hepatobiliary: There is cholelithiasis present although no evidence of biliary ductal dilatation Spleen: Negative. Adrenals: There is mild thickening the adrenal glands Pancreas: Negative. Kidneys ureters and bladder: The urinary bladder is quite distended. There is mild fullness of the r enal collecting systems bilaterally which could be related to back pressure Genitalia: Uterus not identified GI: There is diverticulosis of the left-sided colon although no CT evidence of acute diverticulitis. The appendix is visualized and does not appear inflamed . There is mild thickening in the sigmoid colon. This may simply represent spasm although an annular lesion cannot be excluded There is a small hiatal hernia Vessels/spaces/nodes: Negative. Bones/soft tissues: There are streak artifacts and pelvis from a left hip arthroplasty. There Is a small umbilical hernia containing fat. There are extensive spondylotic changes in the lumbar spine Additional findings: None pertinent. IMPRESSION: Cholelithiasis although no evidence for ductal dilatation The urinary bladder is quite distended. This mild fullness the renal collecting systems bilaterally which could be related to back pressure. Clinical correlation needed Diverticulosis of the left side of the colon although no CT evidence of acute diverticulitis. There is mild thickening the sigmoid colon. This may simply be related to spasm although an annular lesion cannot be totally excluded. Small hiatal hernia. Coarse linear stranding the lung bases is consistent with scarring versus atelectasis although appear s more prominent when compared to the prior study Report Dictated By: Yuridia Nix MD at 09/25/2018 3:40 PM Report E-Signed By: Yuridia Nix MD at 09/25/2018 3:58 PM WSN:[id number]
[2018-09-25 16:36] VITALS: BP 128/59
[2018-09-25] MEDS ORDERED: NS(*) 0.9% 1000 ML BAG 1,000 ML IV PRN (17:08)
[2018-09-25] MEDS ORDERED: ACETAMINOPHEN 325 MG TAB PO PRN (17:10)
[2018-09-25] MEDS ORDERED: HYDROmorphone PCA 6 MG/30 ML IV PRN (17:20)
[2018-09-25] MEDS ORDERED: PROMETHAZINE 25 MG/ML 1 ML AMP IVP PRN (17:20)
--- NOTE | 2018-09-25 17:29 | History & Physical ---
History of Present Illness Chief Complaint Back pain History of Present Illness 78yo female with PMHx significant for chronic a-fib, urinary incontinence. She recently returned from an automobile trip to [place], [place]. She states she had onset of increasing back pain over the past couple of days. She denied any radiation of the pain into her buttocks or legs. No focal weakness or numbness, but she does have some chronic neuropathy in both feet (unchanged). She denied any fevers or chills. She denied any known injury. She did have syncopal episode earlier today when trying to get up to bathroom. She was evaluated in the ER. Her CT scan of the lumbosacral spine showed multilevel degenerative changes with moderate spinal stenosis at L4-5. CT scan of the abdomen and pelvis, however, showed significant distension of her urinary bladder. She was recommended for admission. History Problems: (1) Urinary incontinence Status: Chronic (2) Chronic atrial fibrillation Status: Chronic (3) Hypothyroidism Status: Chronic (4) History of hip replacement Status: Chronic (5) Primary biliary cirrhosis Status: Chronic Home Meds Reported Medications [Benfotiamin ] No Conflict Check, 1 TAB PO DAILY 09/25/18 Boissevain-3 Fatty Acids/Fish Oil (FISH OIL 1,000 MG CAPSULE) 1 Each Capsule, 1 EACH PO DAILY, CAPSULE 09/25/18 Garlic (GARLIC) 1 Each Tablet, 1 EACH PO DAILY 09/25/18 Metoprolol Tartrate (METOPROLOL TARTRATE) 50 Mg Tab, 1 TAB PO QDAY, TAB 09/25/18 Rivaroxaban 20 Mg (XARELTO 20 MG) 20 Mg Tablet, 20 MG PO DAILY, TAB 09/25/18 Levothyroxine Sodium (LEVOTHYROXINE SODIUM) 50 Mcg Tablet, 50 MCG PO QDAY, TAB 09/25/18 Olopatadine HCl (Pazeo) 2.5 Ml Drops, 1 DROP OP DAILY 09/25/18 Oxybutynin Chloride (DITROPAN XL) 10 Mg Tab.er.24, 10 MG PO QDAY, TAB 09/25/18 Vitamin B Complex (VITAMIN B COMPLEX) 1 Each Capsule, 1 EACH PO, CAPSULE 07/23/17 Cholecalciferol (Vitamin D3) (Vitamin D-3) 2,000 Unit Tablet 07/23/17 Multivit,Calc,Mins/Iron/Folic (Therapeutic-M Tablet) 9 Mg Iron-400 Mcg Tablet 07/23/17 Dronedarone Hcl (MULTAQ) 400 Mg Tablet, 400 MG PO 07/23/17 Ursodiol (Jordy) 250 Mg Tablet, 250 MG PO BID, #1 12/15/09 Discontinued Reported Medications Rivaroxaban (XARELTO 10 MG TAB (OR EQUIV)) 10 Mg Tablet, 10 MG PO QDAY 03/08/15 Levothyroxine Sodium (Levothryoxine Sodium) 300 Mcg Tablet, 300 MCG PO QDAY, #1 12/15/09 Discontinued Scripts Metoprolol Tartrate (METOPROLOL TARTRATE) 25 Mg Tablet, 1 TAB PO BID, #12 TAB Prov:PAUL GARCIA TEXTILE KNITTER-BC 07/23/17 Allergies: Coded Allergies: Penicillins (Verified Allergy, Mild, SYNCOPE, 09/25/18) iodine (Verified Allergy, Mild, INTERNAL IODINE, CHANGE IN VS, 09/25/18) Uncoded Allergies: ORANGE JUICE (Allergy, Severe, THROAT CLOSES, 12/21/11) SOME DIARY PRODUCTS (Allergy, Severe, THROAT CLOSES, 05/22/07) MOLD (Allergy, Unknown, 11/19/14) Hx Smoking: No Smoking Status: Never Smoker Caffeine Intake: Tea Caffeine/Cups Per Day: 1-2 Review of Systems Constitutional: No Fever, No Chills Neurological: Weakness Cardiovascular: No Chest Pain, No Palpitations Respiratory: No Shortness of Breath, No Cough Gastrointestinal: No Nausea, No Vomiting, No Diarrhea Genitourinary: Urinary Incontinence; No Dysuria Musculoskeletal: Pain, Impaired Mobility Exam Vital Signs Vital Signs Date Time Temp Pulse Resp B/P (MAP) Pulse Ox O2 Delivery O2 Flow Rate FiO2 09/25/18 16:36 98.2 63 16 128/59 (82) 95 Room Air 09/25/18 11:35 2.0 General Appearance: Alert, Awake Neuro: Other (No focal motor deficits noted/sensory exam is grossly intact both legs/feet) Eyes: PERRLA Neck: No Masses Cardiovascular: Other (Regular no obvious murmur) Respiratory: Clear to Auscultation Chest: No Tenderness GI: Abd Soft and Non-Tender : No CVA Tenderness Musculoskeletal: Other (Tender over left lumbar paraspinal muscles with some spasm) Extremities: Warm, Pulses (pedal pulses normal), Perfused Psych: Alert & Oriented X3 Medical Decision Making Data Points Result Diagram: 09/25/18 1158 09/25/18 1158 Item Value Date Time Urine Mucus None /HPF 09/25/18 1630 Urine Bacteria Negative /HPF 09/25/18 1630 Urine Amorphous Crystals Moderate /HPF 09/25/18 1630 Urine Squamous Epithelial Cells None /LPF 09/25/18 1630 Urine WBC None /HPF 09/25/18 1630 Urine RBC 15 /HPF 09/25/18 1630 Urine Leukocyte Esterase Negative 09/25/18 1630 Urine Urobilinogen Negative mg/dL 09/25/18 1630 Urine Bilirubin Negative 09/25/18 1630 Urine Nitrite Negative 09/25/18 1630 Urine Blood Negative 09/25/18 1630 Urine Ketones Negative mg/dL 09/25/18 1630 Urine Glucose (UA) Negative mg/dL 09/25/18 1630 Urine Protein Negative mg/dL 09/25/18 1630 Urine Specific [place] 1.014 09/25/18 1630 Urine pH 7.0 pH 09/25/18 1630 Urine Clarity Turbid 09/25/18 1630 Urine Color Yellow 09/25/18 1630 Lipase 75 U/L 09/25/18 1158 Albumin 4.2 g/dl 09/25/18 1158 Total Protein 7.2 g/dl 09/25/18 1158 C-Reactive Protein 3.1 mg/dl H 09/25/18 1158 Alkaline Phosphatase 80 U/L 09/25/18 1158 Alanine Aminotransferase (ALT/SGPT) 19 U/L 09/25/18 1158 Aspartate Amino Transf (AST/SGOT) 45 U/L H 09/25/18 1158 Total Bilirubin 0.5 mg/dl 09/25/18 1158 Calcium Level 9.6 mg/dl 09/25/18 1158 EKG / Imaging Imaging PATIENT NAME: Maria M Katz : 1940 MR: [id number] V: [id number] EXAM DATE: [id number] ORDERING PHYSICIAN: DILMA LYNCH TECHNOLOGIST: Location: [facility] [place] Patient: Maria M Katz : 1940 Visit/Account:[id number] Date of Sevice: 09/25/2018 Study: CT scan of the lumbar spine without contrast. Indication:Low back pain Comparison study:None Technique: Multiple axial images are obtained through the lumbar spine without the use of intravenous contrast. Coronal and sagittal two-dimensional reconstructions were made from the original data set. One of the following dose optimization techniques was utilized in the performance of this exam: Automated exposure control; adjustment of the mA and/or kV according to the patient's size; or use of an iterative reconstruction technique. Specific details can be referenced in the facility's radiology CT exam operational policy. Alignment:There is normal alignment of the lumbar vertebrae. Paraspinal soft tissues: Unremarkable There is no evidence of active compression fracture. Disc spaces: L1/2: At this level, there is a posterior spondylotic ridge. There is vacuum disc degeneration present. There is a minimal diffuse disc bulge. There is no significant neural foraminal stenosis or spinal stenosis identified. L2/3: At this level, there is vacuum disc degeneration. There is mild diffuse disc bulge. There is mild spinal stenosis. There is mild bilateral neural foraminal stenosis. There is facet hypertrophy present. L3/4: At this level, there is vacuum disc degeneration. There is a diffuse disc bulge. There is bilateral facet hypertrophy. There is mild spinal stenosis present. There is moderate right and mild left neural foraminal stenosis. L4/5: At this level, there is marked disc space narrowing. There is vacuum disc degeneration. There is a central disc extrusion. There is at least moderate spinal stenosis present at this level. There is moderate bilateral neural foraminal stenosis. L5/S1: At this level, there is no evidence of significant disc pathology. There is bilateral facet hypertrophy. There is no significant spinal stenosis identified. There is no significant neural foraminal stenosis. IMPRESSION: Multilevel lumbar disc pathology and spondylopathy present as described. At the level of L4-5, there is at least moderate spinal stenosis present. Report Dictated By: Ozzie Bell at 09/25/2018 1:54 PM Report E-Signed By: Ozzie Bell at 09/25/2018 1:57 PM WSN:[id number] PATIENT NAME: Maria M Katz : 1940 MR: [id number] V: [id number] EXAM DATE: ORDERING PHYSICIAN: DILMA LYNCH TECHNOLOGIST: Location: [facility] [place] Patient: Maria M Katz : 1940 Visit/Account:[id number] Date of Sevice: 09/25/2018 CT ABDOMEN PELVIS W/O CON HISTORY: ABD PAIN IODINE ALLERGY TECHNIQUE: Axial images acquired through the abdomen/pelvis. Coronal and sagittal reformatting also performed. No IV contrast administered.Dose Lowering Technique One of the following dose optimization techniques was utilized in the performance of this exam: Automated exposure control; adjustment of the mA and/or kV according to the patient's size; or use of an iterative reconstruction technique. Specific details can be referenced in the facility's radiology CT exam operational policy. COMPARISON: July 29, 2009 FINDINGS: Visualized lung bases: Incompletely imaged are cardiac leads. Coarse linear stranding in the lung bases is consistent with scarring versus atelectasis . This appears more prominent when compared to the prior study Hepatobiliary: There is cholelithiasis present although no evidence of biliary ductal dilatation Spleen: Negative. Adrenals: There is mild thickening the adrenal glands Pancreas: Negative. Kidneys ureters and bladder: The urinary bladder is quite distended. There is mild fullness of the renal collecting systems bilaterally which could be related to back pressure Genitalia: Uterus not identified GI: There is diverticulosis of the left-sided colon although no CT evidence of acute diverticulitis. The appendix is visualized and does not appear inflamed . There is mild thickening in the sigmoid colon. This may simply represent spasm although an annular lesion cannot be excluded There is a small hiatal hernia Vessels/spaces/nodes: Negative. Bones/soft tissues: There are streak artifacts and pelvis from a left hip arthroplasty. There Is a small umbilical hernia containing fat. There are extensive spondylotic changes in the lumbar spine Additional findings: None pertinent. IMPRESSION: Cholelithiasis although no evidence for ductal dilatation The urinary bladder is quite distended. This mild fullness the renal collecting systems bilaterally which could be related to back pressure. Clinical correlation needed Diverticulosis of the left side of the colon although no CT evidence of acute diverticulitis. There is mild thickening the sigmoid colon. This may simply be related to spasm although an annular lesion cannot be totally excluded. Small hiatal hernia. Coarse linear stranding the lung bases is consistent with scarring versus atelectasis although appears more prominent when compared to the prior study Report Dictated By: Yuridia Nix MD at 09/25/2018 3:40 PM Report E-Signed By: Yuridia Nix MD at 09/25/2018 3:58 PM AYUSHN:LUCRECIA Assessment and Plan Problems: (1) Back pain Status: Acute Assessment & Plan: Maybe related to her underlying degenerative lumbar disc disease, but more likely might be her significant urinary retention. She does not appear to have any neurologic deficits other than possibly her urinary retention. Will work on pain control and mobility. She will have Mckinley catheter placed for urinary drainage. Watch closely and modify therapy as needed. (2) Urinary retention Status: Acute Assessment & Plan: Will place Mckinley cath, watch urine output closely for any evidence of a post-obstructive diuresis. Give generous IV fluids tonight. Watch labs. Will check UA and culture and treat as needed. (3) Chronic atrial fibrillation Status: Chronic Assessment & Plan: Continue Multaq, metoprolol, Xarelto. (4) Hypothyroidism Status: Chronic Assessment & Plan: Continue replacement with L-thyroxine 50mcg PO daily. (5) Primary biliary cirrhosis Status: Chronic Assessment & Plan: Continue Ursodiol. Copies to: HERNESTO LIVINGSTON DO ; Venous Thromboembolism Antithrombotics Is Pt On Any Antithrombotics?: Yes Exam Sepsis Risk: No Definite Risk MARTHA GREY MD Sep 25, 2018 17:28
[2018-09-25] MEDS ORDERED: LEVO50TA86 PO (17:34)
[2018-09-25] MEDS ORDERED: GARL1TAB9 PO (17:34)
[2018-09-25] MEDS ORDERED: RIVA20TA PO (17:34)
[2018-09-25] MEDS ORDERED: [UNRECOGNIZED DRUG - OTHER] PO (17:34)
[2018-09-25] MEDS ORDERED: METO-253 PO (17:34)
[2018-09-25] MEDS ORDERED: OMEG-11 PO (17:34)
[2018-09-25] MEDS: DIAZEPAM 5 MG TAB PO PRN (17:41)
[2018-09-25] MEDS: HYDROmorphone HCL 2 MG/ML SDV IVP PRN ×2 (18:53→21:55)
[2018-09-25 19:26] VITALS: BP 118/61
[2018-09-25] MEDS: DRONEDARONE HCL 400 MG TABLET PO SCH (20:42)
[2018-09-25] MEDS: URSODIOL 300 MG CAP PO SCH (20:42)
[2018-09-25] MEDS ORDERED: PATIENT'S OWN MED PO SCH (21:00)
[2018-09-26 00:40] VITALS: BP 124/74
[2018-09-26] MEDS: DIAZEPAM 5 MG TAB PO PRN ×3 (00:42→23:16)
[2018-09-26] MEDS: LEVOTHYROXINE SOD 0.05 MG TAB PO SCH (05:52)
[2018-09-26] MEDS: HYDROmorphone HCL 2 MG/ML SDV IVP PRN ×2 (05:56→08:32)
[2018-09-26 05:57] VITALS: BP 120/66
[2018-09-26 06:17] LABS: PLATELET COUNT, AUTOMATED 194 K/uL (150-450)
[2018-09-26 07:50] VITALS: BP 127/65
[2018-09-26] MEDS: DRONEDARONE HCL 400 MG TABLET PO SCH ×2 (08:29→21:08)
[2018-09-26] MEDS: METOPROLOL SUCC XL 50 MG TABCR 50 MG TAB.ER.24H PO SCH (08:31)
[2018-09-26] MEDS: RIVAROXABAN 10 MG TAB PO SCH (08:32)
[2018-09-26] MEDS: URSODIOL 300 MG CAP PO SCH ×2 (08:42→21:08)
[2018-09-26 09:01] VITALS: BMI 22.6
--- NOTE | 2018-09-26 09:41 | NUR ---
Physical Therapy Impression PT eval complete. Pt reports pain started after long car ride over the weekend. She was unable to get out of bed on tuesday d/t significant back pain and spasm. She reports "passing out" d/t the pain. PT instructed patient in log roll technique. Pt able to rise to a partial sitting position prior to experiencing pain and spasm in the R) low back, requiring return to supine. MaxA to scoot up in bed. PT assess pt's low back and pelvis as thoroughly as possible with patient in supine position. Pt demonstrates leg length discrepancy with R) LE longer, as well as pain in the R) hip abductors. PT instructed pt in MET for R) anterior pelvic rotation, with emphasis on activation of R) hamstrings. PT instructed pt in [id number], with 5 rounds completed. Pt reports slight improvement in pain. With second attempt at bed mobility, pt was able to fully rise to a seated position, but once scooting to EOB, experienced pain and spasm. Pt cried out and returned to supine position. Pt may benefit TENS application, will address with further treatments. Physical Therapy Goals 1: pt to complete bed mobility with Sohail 2: pt to cmplete transfers with SBA 3: pt to ambulate 100' with SBA Patient's Goals
[2018-09-26] MEDS ORDERED: APAP/HYDROCODONE 325/5 TAB PO PRN (12:15)
[2018-09-26] MEDS: oxyCODONE HCL 5 MG CAP PO PRN ×2 (12:44→21:08)
--- NOTE | 2018-09-26 13:36 | Hospitalist Progress Note ---
Subjective Progress Notes Subjective She was admitted with low back pain. She still has severe back pain in certain positions. She has not been able to get out of bed since admission. Patient Complains of: Cardiovascular: No: Chest Pain Respiratory: No: Shortness of Breath Physical Exam Vital Signs Date Time Temp Pulse Resp B/P (MAP) Pulse Ox O2 Delivery O2 Flow Rate FiO2 09/26/18 11:15 88 Nasal Cannula 1.0 09/26/18 07:50 98.1 71 16 127/65 (85) Intake and Output 09/26/18 01:00 Intake Total 1400 ml Output Total 1010 ml Balance 390 ml Intake Oral 400 ml IV Total 1000 ml Output Urine Total 1010 ml General Appearance: Alert, Awake, Afebrile Neuro: No Gross deficits Cardiovascular: Regular Rate and Rhythm Respiratory: No Respiratory Distress, Clear to Auscultation Musculoskeletal: Other (pain appears more bilateral upper buttocks pain, pain shoots down leg when movement) Extremities: Warm, Perfused; No Edema Psych: Alert & Oriented X3, Appropriate Mood & Affect Result Diagram: 09/26/1860109/26/18601 Assessment and Plan Problems: (1) Back pain Status: Acute Assessment & Plan: Maybe related to her underlying degenerative lumbar disc dis ease. She does not appear to have any neurologic deficits other than possibly her urinary retention. Will work on pain control and mobility. She will continue Mckinley catheter placed for urinary drainage. Watch closely and modify therapy as needed. She will work with PT today. (2) Urinary retention Status: Acute Assessment & Plan: She has Mckinley cath, watch urine output closely for any evidence of a post-obstructive diuresis. UA negative for infection. (3) Chronic atrial fibrillation Status: Chronic Assessment & Plan: Continue Multaq, metoprolol, Xarelto. (4) Hypothyroidism Status: Chronic Assessment & Plan: Continue replacement with L-thyroxine 50mcg PO daily. (5) Primary biliary cirrhosis Status: Chronic Assessment & Plan: Continue Ursodiol. Exam Sepsis Risk: No Definite Risk HEATHER YEUNG [employer] Sep 26, 2018 13:36
[2018-09-26 13:37] VITALS: BP 132/64
--- NOTE | 2018-09-26 14:54 | NUR ---
Physical Therapy Impression Pt reports mild improvement in pain, with improvement with use of heat. PT assisted pt in MET to R) side in order to correct R) anterior pelvic rotation, pt with good tolerance. PT placed TENS unit over R) posterior lumbar spine, with pt reporting improvement in pain with use. Pt able to rise to seated position with SBA. Once seated, pt reports dizziness and nausea, BP dropped with a SBP of 76 mmHg. Pt assisted to supine position. Pt with improved tolerance to mobility. She was encouraged to continue to mobilize with nursing staff this PM to assist with orthostatic hypotension and allow for improved tolerance to mobility in the AM. Pt will continue to utilize TENS unit this evening and was instructed in independent use. Physical Therapy Goals 1: pt to complete bed mobility with Sohail 2: pt to cmplete transfers with SBA 3: pt to ambulate 100' with SBA Patient's Goals
[2018-09-26] MEDS ORDERED: predniSONE 20 MG TAB PO ONE (16:55)
[2018-09-26] MEDS ORDERED: BISACODYL 10 MG SUPP PR PRN (16:55)
[2018-09-26 20:10] VITALS: BP 114/60
[2018-09-26] MEDS: DOCUSATE SODIUM 100 MG CAP PO SCH (21:08)
[2018-09-26 23:14] VITALS: BP 127/62
[2018-09-26] MEDS ORDERED: NS(*) 0.9% 1000 ML BAG 1,000 ML IV PRN (23:20)
[2018-09-27 03:58] VITALS: BP 121/50
[2018-09-27] MEDS: LEVOTHYROXINE SOD 0.05 MG TAB PO SCH (06:18)
[2018-09-27 07:52] VITALS: BP 115/55
[2018-09-27] MEDS: oxyCODONE HCL 5 MG CAP PO PRN ×3 (08:10→22:14)
[2018-09-27] MEDS: POLYETHYLENE GLYCOL 17 GM PKT PO SCH (08:34)
[2018-09-27] MEDS: METOPROLOL SUCC XL 50 MG TABCR 50 MG TAB.ER.24H PO SCH (08:34)
[2018-09-27] MEDS: RIVAROXABAN 10 MG TAB PO SCH (08:34)
[2018-09-27] MEDS: URSODIOL 300 MG CAP PO SCH ×2 (08:34→20:29)
[2018-09-27] MEDS: DOCUSATE SODIUM 100 MG CAP PO SCH ×2 (08:34→20:29)
--- NOTE | 2018-09-27 09:42 | Hospitalist Progress Note ---
Subjective Progress Notes Subjective She was admitted with low back pain. She reports some improvement in symptoms, but has not yet ambulated. She has only been able to sit on edge of bed briefly. Patient Complains of: Cardiovascular: No: Chest Pain Respiratory: Shortness of Breath Physical Exam Vital Signs Date Time Temp Pulse Resp B/P (MAP) Pulse Ox O2 Delivery O2 Flow Rate FiO2 09/27/18 09:02 95 Nasal Cannula 2.0 09/27/18 07:52 97.6 58 18 115/55 (75) Intake and Output 09/27/18 07:00 Intake Total 2082 ml Output Total 2400 ml Balance -318 ml Intake Oral 940 ml IV Total 1142 ml Output Urine Total 2400 ml General Appearance: Alert, Awake, No Acute Distress, Afebrile Neuro: No Gross deficits Cardiovascular: Regular Rate and Rhythm Respiratory: No Respiratory Distress, Clear to Auscultation Extremities: Warm, Perfused; No Edema Psych: Alert & Oriented X3, Appropriate Mood & Affect Result Diagram: 09/26/1860109/26/18601 Assessment and Plan Problems: (1) Back pain Status: Acute Assessment & Plan: Maybe related to her underlying degenerative lumbar disc disease. She does not appear to have any neurologic deficits other than possibly her urinary retention. Will work on pain control and mobility. She will continue Mckinley catheter placed for urinary drainage. Watch closely and modify therapy as needed. She will work with PT again today. (2) Urinary retention Status: Acute Assessment & Plan: She has Mckinley cath, watch urine output closely for any evidence of a post-obstructive diuresis. UA negative for infection. (3) Chronic atrial fibrillation Status: Chronic Assessment & Plan: Continue Multaq, metoprolol, Xarelto. (4) Hypothyroidism Status: Chronic Assessment & Plan: Continue replacement with L-thyroxine 50mcg PO daily. (5) Primary biliary cirrhosis Status: Chronic Assessment & Plan: Continue Ursodiol. Exam Sepsis Risk: No Definite Risk HEATHER YEUNG [employer] Sep 27, 2018 09:42
[2018-09-27] MEDS: DIAZEPAM 5 MG TAB PO PRN ×2 (10:12→20:29)
[2018-09-27] MEDS: DRONEDARONE HCL 400 MG TABLET PO SCH ×2 (11:49→20:28)
--- NOTE | 2018-09-27 11:49 | NUR ---
AM dronedarone given late due to unavailability
--- NOTE | 2018-09-27 14:15 | NUR ---
Physical Therapy Impression Pt demos improvement in pain management with use of TENS and K-pad in addition to medications provided. Pt tolerated trng with log roll technique and tesd-pj-vujd instructions to transition from supine to sitting at edge of bed without excessive discomfort. Pt then completed sit to stand transfer x 2 reps with use of FWW and Min/CGA and then performed [id number]-yequ-[id number] transfer to bedside commode. Pt did report some episodes of increased dizziness with coinciding decrease in BP, but resolved with a few deep breaths and remaining upright before changing position again. Pt was involved with mobility and was upright for most of 30 minutes during this session, and denies any significant increase in discomfort. Recommend encouragement for increased functional mobility throughout the day to include toileting once catheter is removed. Pt may benefit from Home healthcare upon d/c home. Physical Therapy Goals 1: pt to complete bed mobility with Sohail 2: pt to cmplete transfers with SBA 3: pt to ambulate 100' with SBA Patient's Goals
[2018-09-27 14:23] VITALS: BP 119/62
[2018-09-27] MEDS ORDERED: THIA100T6 PO (18:17)
[2018-09-27 20:07] VITALS: BP 106/51
[2018-09-27] MEDS: MAGNESIUM HYDROXIDE* 30ML UDCP PO PRN (20:29)
[2018-09-27 22:20] VITALS: BP 92/41
[2018-09-28 05:37] VITALS: BP 106/54
[2018-09-28] MEDS: oxyCODONE HCL 5 MG CAP PO PRN ×3 (05:42→22:13)
[2018-09-28] MEDS: LEVOTHYROXINE SOD 0.05 MG TAB PO SCH (05:42)
[2018-09-28] MEDS: DIAZEPAM 5 MG TAB PO PRN ×3 (05:56→21:03)
[2018-09-28] MEDS ORDERED: INFLUENZA VIRUS VAC 0.5ML SYR IM ONLY ONE (09:00)
[2018-09-28 09:19] VITALS: BP 105/52
[2018-09-28] MEDS: DOCUSATE SODIUM 100 MG CAP PO SCH ×2 (09:19→21:03)
[2018-09-28] MEDS: POLYETHYLENE GLYCOL 17 GM PKT PO SCH (09:19)
[2018-09-28] MEDS: METOPROLOL SUCC XL 50 MG TABCR 50 MG TAB.ER.24H PO SCH (09:20)
[2018-09-28] MEDS: RIVAROXABAN 10 MG TAB PO SCH (09:20)
[2018-09-28] MEDS: predniSONE 20 MG TAB PO SCH (09:20)
[2018-09-28] MEDS: DRONEDARONE HCL 400 MG TABLET PO SCH ×2 (09:21→21:03)
[2018-09-28] MEDS: URSODIOL 300 MG CAP PO SCH ×2 (09:29→21:03)
--- NOTE | 2018-09-28 10:57 | Hospitalist Progress Note ---
Subjective Progress Notes Subjective She has some improvement in pain, but still having difficulty moving. Patient Complains of: Cardiovascular: No: Chest Pain Respiratory: No: Shortness of Breath Physical Exam Vital Signs Date Time Temp Pulse Resp B/P (MAP) Pulse Ox O2 Delivery O2 Flow Rate FiO2 09/28/18 09:19 98.2 66 16 105/52 (69) 92 Nasal Cannula 1.0 Intake and Output 09/28/18 07:00 Intake Total 1762 ml Output Total 1900 ml Balance -138 ml Intake Oral 1762 ml Output Urine Total 1900 ml General Appearance: Alert, Awake, No Acute Distress, Afebrile Neuro: No Gross deficits Cardiovascular: Regular Rate and Rhythm Respiratory: No Respiratory Distress, Clear to Auscultation GI: Soft and Non-Tender Psych: Alert & Oriented X3, Appropriate Mood & Affect Result Diagram: 09/26/1802 09/26/18 06 Assessment and Plan Problems: (1) Back pain Status: Acute Assessment & Plan: Maybe related to her underlying degenerative lumbar disc disease. She does not appear to have any neurologic deficits other than possibly her urinary retention. Will work on pain control and mobility. She have her Mckinley catheter removed today. Watch closely and modify therapy as needed. She will work with PT again today. Will add lidocaine patch this morning. (2) Urinary retention Status: Acute Assessment & Plan: Mckinley cath to be removed today, watch urine output closely for any evidence of retention. UA negative for infection. (3) Chronic atrial fibrillation Status: Chronic Assessment & Plan: Continue Multaq, metoprolol, Xarelto. (4) Hypothyroidism Status: Chronic Assessment & Plan: Continue replacement with L-thyroxine 50mcg PO daily. (5) Primary biliary cirrhosis Status: Chronic Assessment & Plan: Continue Ursodiol. Exam Sepsis Risk: No Definite Risk HEATHER YEUNG [employer] Sep 28, 2018 10:57
[2018-09-28] MEDS ORDERED: predniSONE 20 MG TAB PO SCH (13:00)
[2018-09-28] MEDS: LIDOCAINE 5% PATCH TP SCH ×2 (14:42→18:07)
--- NOTE | 2018-09-28 16:16 | NUR ---
Physical Therapy Impression Pt completed log roll with CGA and cekh-qg-yeuy verbal cues for supine to sit at edge of bed. Pt then tolerated pxhuh-ngdq-ixnnu transfer with CGA and FWW to [facility] and was able to void. Pt then agreeable to attempt ambulation in hallway with FWW and CGA and noted no symptoms of dizziness or increased pain. Pt ambulated slowly and was cautious with movement in general. Upon return to room, pt was seated at EOB and pt's massage therapist arrived for further treatment while pt is seated upright at side of bed. Pt to call nursing to assist with log roll to sidelying/supine when ready. Physical Therapy Goals 1: pt to complete bed mobility with Sohail 2: pt to cmplete transfers with SBA 3: pt to ambulate 100' with SBA Patient's Goals
--- NOTE | 2018-09-28 18:07 | NUR ---
non admin lidocaine patch due to patient receiving multiple massages today. and patch would have needed to be removed and placed back on multiple times.
[2018-09-28 21:00] VITALS: BP 112/57
[2018-09-28] MEDS ORDERED: PATCH REMOVAL 1 EA TP SCH (21:00)
[2018-09-29 03:55] VITALS: BP 123/59
[2018-09-29] MEDS: LEVOTHYROXINE SOD 0.05 MG TAB PO SCH (04:11)
[2018-09-29] MEDS: DIAZEPAM 5 MG TAB PO PRN (04:11)
[2018-09-29] MEDS: oxyCODONE HCL 5 MG CAP PO PRN (04:12)
[2018-09-29] MEDS: MAGNESIUM HYDROXIDE* 30ML UDCP PO PRN (04:19)
[2018-09-29 07:49] VITALS: BP 106/52
[2018-09-29] MEDS ORDERED: CYCLOBENZAPRINE HCL 10 MG TAB PO PRN (08:40)
[2018-09-29 08:41] VITALS: Ht 167.6 cm; Wt 63.5 kg
[2018-09-29] MEDS: predniSONE 20 MG TAB PO SCH (08:56)
[2018-09-29] MEDS: METOPROLOL SUCC XL 50 MG TABCR 50 MG TAB.ER.24H PO SCH (08:56)
[2018-09-29] MEDS: RIVAROXABAN 10 MG TAB PO SCH (08:56)
[2018-09-29] MEDS: DOCUSATE SODIUM 100 MG CAP PO SCH (08:56)
[2018-09-29] MEDS: URSODIOL 300 MG CAP PO SCH (08:56)
[2018-09-29] MEDS: DRONEDARONE HCL 400 MG TABLET PO SCH (08:57)
[2018-09-29] MEDS: POLYETHYLENE GLYCOL 17 GM PKT PO SCH (08:57)
[2018-09-29] MEDS ORDERED: TAMSULOSIN HCL 0.4 MG CAP PO ONE (12:00)
[2018-09-29] MEDS ORDERED: DIA5 PO (13:53)
[2018-09-29] MEDS ORDERED: DOCU-202 PO (13:53)
[2018-09-29] MEDS ORDERED: OXYC5TAB38 PO (13:53)
[2018-09-29] MEDS ORDERED: TAMS0.4C25 PO (13:53)
--- NOTE | 2018-09-29 14:02 | Hospitalist Depart ---
Discharge Summary Reason for Hosp/Final Diag: (1) Back pain Status: Acute Hospital Course & Plan: Maybe related to her underlying degenerative lumbar disc disease. Appears to be more sciatic pain. She does not appear to have any neurologic deficits other than possibly her urinary retention. She worked with physical therapy for mobility. She had improvement in symptoms when family massaged her low back. She reports much improvement in symptoms at this time and now is able to ambulate. She will go home with home health. (2) Urinary retention Status: Acute Hospital Course & Plan: Mckinley cath removed 09/28, and she was watched closely for urine output for evidence of retention. UA negative for infection. She was instructed to stop Ditropan secondary to retention. She will start Flomax at this time, as she has increased bladder retention. With Flomax, she was able to urinate without difficulty. (3) Chronic atrial fibrillation Status: Chronic Hospital Course & Plan: Continue Multaq, metoprolol, Xarelto. (4) Hypothyroidism Status: Chronic Hospital Course & Plan: Continue replacement with L-thyroxine 50mcg PO daily. (5) Primary biliary cirrhosis Status: Chronic Hospital Course & Plan: Continue Ursodiol. Departure Latest Vital Signs Vital Signs 09/29/18 09/29/18 09/29/18 07:49 10:15 12:00 Temp 97.4 Pulse 67 Resp 16 B/P (MAP) 106/52 (70) Pulse Ox 91 O2 Delivery Nasal Cannula O2 Flow Rate 0.5 Weight (Pounds): 140 Result Diagram: 09/26/1860109/26/18601 Condition: Improved Discharge: Home, Home Health PT/OT Follow Up For: PT For Strengthening, OT For ADL's, PT Evaluation and Treat, OT Evaluation and Treat Home Health RN Follow Up For: Nursing Assessment Home Health [employer]GER Follow Up For: ADL Assistance Discharge Instructions Home Meds Active Scripts Tamsulosin Hcl (FLOMAX) 0.4 Mg Cap.er.24h, 0.4 MG PO DAILY, #30 CAP Prov:HEATHER YEUNG 09/29/18 Docusate Sodium (DOCUSATE SODIUM) 100 Mg Capsule, 100 MG PO BID, #60 CAPSULE Prov:HEATHER YEUNG 09/29/18 Oxycodone Hcl (OXYCODONE HCL) 5 Mg Tablet, 5-10 MG PO Q6H PRN for PAIN, #42 TAB Prov:HEATHER YEUNG [employer]E [employer] 09/29/18 Diazepam (VALIUM) 5 Mg Tablet, 5 MG PO Q6H PRN for MUSCLE SPASMS, #24 TAB Prov:HEATHER YEUNG [employer]E [employer] 09/29/18 Reported Medications Thiamine HCl (B-1) 100 Mg Tablet, 100 MG PO QDAY 09/27/18 [place]-3 Fatty Acids/Fish Oil (FISH OIL 1,000 MG CAPSULE) 1 Each Capsule, 1 EACH PO DAILY, CAPSULE 09/25/18 Garlic (GARLIC) 1 Each Tablet, 1 EACH PO DAILY 09/25/18 Metoprolol Tartrate (METOPROLOL TARTRATE) 50 Mg Tab, 50 MG PO NOON, TAB 09/25/18 Rivaroxaban 20 Mg (XARELTO 20 MG) 20 Mg Tablet, 20 MG PO DAILY, TAB 09/25/18 Levothyroxine Sodium (LEVOTHYROXINE SODIUM) 50 Mcg Tablet, 50 MCG PO QDAY, TAB 09/25/18 Olopatadine HCl (Pazeo) 2.5 Ml Drops, 1 DROP OP DAILY 09/25/18 Cholecalciferol (Vitamin D3) (Vitamin D-3) 2,000 Unit Tablet 07/23/17 Multivit,Calc,Mins/Iron/Folic (Therapeutic-M Tablet) 9 Mg Iron-400 Mcg Tablet 07/23/17 Dronedarone Hcl (MULTAQ) 400 Mg Tablet, 400 MG PO BID with morning and evening meals 07/23/17 Ursodiol (Jordy) 250 Mg Tablet, 250 MG PO BID, #1 12/15/09 Discontinued Reported Medications Oxybutynin Chloride (DITROPAN XL) 10 Mg Tab.er.24, 10 MG PO QDAY, TAB 09/25/18 [Benfotiamin ] No Conflict Check, 1 TAB PO DAILY 09/25/18 Vitamin B Complex (VITAMIN B COMPLEX) 1 Each Capsule, 1 EACH PO, CAPSULE 07/23/17 Rivaroxaban (XARELTO 10 MG TAB (OR EQUIV)) 10 Mg Tablet, 10 MG PO QDAY 03/08/15 Levothyroxine Sodium (Levothryoxine Sodium) 300 Mcg Tablet, 300 MCG PO QDAY, #1 12/15/09 Discontinued Scripts Metoprolol Tartrate (METOPROLOL TARTRATE) 25 Mg Tablet, 1 TAB PO BID, #12 TAB Prov:PAUL GARCIA [employer]E [employer]- 07/23/17 Diet: Regular Activity: As Tolerated, With Walker Special Instructions: Follow up with Dr. Livingston next week. Use massage therapy, heat/ ice mix. Take Valium and Oxycodone only if needed. Start Flomax for urinary retention. Stop Ditropan. Copies to: GENE LIVINGSTON DO ; Venous Thromboembolism Antithrombotics Is Pt On Any Antithrombotics?: Yes [id number] Certification Face to Face Home Health Certification Patient's Primary Care Provider: Gene Livingston DO Institutional Provider conducted the fxia-ap-[id number] encounter. Electronic Undersigning Physician Certifies Home Health. I certify that the patient has been under my care and that I had a [id number]-[id number] encounter that meets the physician [id number]-zb-[id number] encounter requirements with this patient. This patient is home-bound due to safety issues and continues to require assistance with ADL's. I certify that based on my findings, that Nursing, Aides and the following Home Health services are medically necessary. Medical Necessity: Nursing, Rehab Date Face to Face Conducted: Sep 29, 2018 HEATHER YEUNGP Sep 29, 2018 14:02
--- NOTE | 2018-09-29 14:15 | NUR ---
Physical Therapy Impression Pt and CG demo understanding of log roll technique to minimize symptoms and use of equipment to off load back during sit to/from stand transfers and ambulation. Pt completed up/down small platform step using rail and CG instructed in hand held assist as needed. Pt has obtained a walker for home use and CG plans to obtain a toilet safety frame if needed. From a mobility standpoint, pt is safe to discharge home. Physical Therapy Goals 1: pt to complete bed mobility with Sohail 2: pt to complete transfers with SBA 3: pt to ambulate 100' with SBA Patient's Goals
[2018-10-01 07:23] VITALS: BP 136/74
== END 2018-09-29 13:54 | disposition home or self-care (01) ==
LOC: ER 11:41 → INTOOBSV 15:21 → MED 15:21
PROVIDERS: ADMIT Internal Medicine; ATTEND Internal Medicine
DX: M54.5 Low back pain (principal); Z95.0 Presence of cardiac pacemaker; I48.2 Chronic atrial fibrillation; Z79.01 Long term (current) use of anticoagulants; R33.9 Retention of urine, unspecified; E03.9 Hypothyroidism, unspecified; K74.3 Primary biliary cirrhosis
CPT/HCPCS: 36415; 72131; 74176; 81001; 83690; 85025; 85651; 86140; 93005; 96361; 96374; 97116; 97140; 97161; 97530; 99284; A4353; A9270; G0378; J1170; J3010; J7030; J7512; 82040; 82247; 82310; 82374; 82435; 82565; 82947; 84075; 84132; 84155; 84295; 84450; 84460; 84520

== ENCOUNTER → 2018-09-25 | Outpatient (CLI) | payer MEDICARE, OTHER ==
[~2018-09-25] MED LIST changes: +DIA5 PO; +DOCU-202 PO; +GARL1TAB9 PO; +LEVO50TA86 PO; +METO-253 PO; +OLOP2.5D4 OP; +OMEG-11 PO; +OXYB10TA21 PO; +OXYC5TAB38 PO; +RIVA20TA PO; +TAMS0.4C25 PO; +THIA100T6 PO; +[UNRECOGNIZED DRUG - OTHER] PO
[2018-09-29 08:41] VITALS: BMI 22.6
== END ==
LOC: AMB 11:03
PROVIDERS: ATTEND Nurse Practitioner
DX: M54.5 Low back pain (principal); M79.662 Pain in left lower leg; M79.661 Pain in right lower leg
CPT/HCPCS: A0425; A0427

== ENCOUNTER → 2019-01-04 | Outpatient (CLI) | payer MEDICARE, OTHER ==
[2018-09-29 08:41] VITALS: BMI 22.6
[~2019-01-04] MED LIST changes: +DIA5 PO; +DOCU-202 PO; +GARL1TAB9 PO; +LEVO50TA86 PO; +METO-253 PO; +OLOP2.5D4 OP; +OMEG-11 PO; +OXYB10TA21 PO; +OXYC5TAB38 PO; +RIVA20TA PO; +TAMS0.4C25 PO; +THIA100T6 PO; +[UNRECOGNIZED DRUG - OTHER] PO
--- NOTE | 2019-01-05 08:21 | RADIOLOGY IMAGING REPORT ---
FACILITY: [facility] PATIENT NAME: HOLLIS COLLINS : [id number] MR: [id number] V: [id number] EXAM DATE: ORDERING PHYSICIAN: HERNESTO LIVINGSTON TECHNOLOGIST: Nessa Laboy PROCEDURE: BILATERAL DIGITAL SCREENING MAMMOGRAM WITH CAD ASSISTED INTERPRETATION & 3D TOMOSYNTHESIS REASON FOR STUDY: Screening FAMILY HISTORY OF BREAST CANCER: Mother BREAST PROCEDURES/TREATMENTS: Benign surgical biopsy of both breasts COMPARISON: 09/29/17, 09/09/16, 09/08/15, 09/05/14, 08/28/13, 07/19/12 VIEWS OBTAINED: Bilateral 2D & 3D full field CC & MLO projections BREAST DENSITY: The breasts are heterogeneously dense which can obscure small masses. MAMMOGRAM FINDINGS: The parenchymal pattern has remained stable allowing for difference in mammographic technique & patient positioning. IMPRESSION: BIRADS 1: Negative. DIAGNOSTIC CATEGORY 1--NEGATIVE. RECOMMENDATIONS: ROUTINE MAMMOGRAM AND CLINICAL EVALUATION. Dictated by: Yuridia Nix M.D. on 01/04/2019 at 15:42 Transcribed by: NATHALY on 01/05/2019 at 6:51 Approved by: Yuridia Nix M.D. on 01/05/2019 at 8:18 [facility]
== END ==
LOC: MAMO 00:19
PROVIDERS: ATTEND Family Medicine
DX: Z12.31 Encounter for screening mammogram for malignant neoplasm of breast (principal)
CPT/HCPCS: 77063; 77067

== ENCOUNTER → 2019-01-05 | Outpatient (CLI) | payer MEDICARE, OTHER ==
[2018-09-29 08:41] VITALS: BMI 22.6
--- NOTE | 2019-01-05 18:11 | RADIOLOGY IMAGING REPORT ---
FACILITY: [facility] PATIENT NAME: Maria M Katz : 1940 MR: [id number] V: [id number] EXAM DATE: ORDERING PHYSICIAN: JOSE CARLOS CONNOLLY TECHNOLOGIST: Location: [facility] Patient: Maria M Katz : 1940 Visit/Account:[id number] Date of Sevice: 01/05/2019 2 VIEWS CHEST INDICATION: Cough, laryngitis COMPARISON: X-ray examination of the chest from July 23, 2017 FINDINGS: Heart is stable. Stable appearance dual-lead left hemithorax pacer. Unchanged mild central bronchitic changes with pulmonary hyperinflation without new infiltrate, consolidation, effusion or pneumothora x. No acute bony finding. IMPRESSION: 1. Pulmonary hyperinflation. Stable chronic central bronchitic changes. No acute finding. Report Dictated By: Basil Costa MD at 01/05/2019 6:04 PM Report E-Signed By: Basil Costa MD at 01/05/2019 6:05 PM [id number]
== END ==
LOC: RAD 17:27
PROVIDERS: ATTEND Family Medicine
DX: R07.2 Precordial pain (principal)
CPT/HCPCS: 71046